=== PATIENT | female | born 1990 | race Caucasian/White ===

== ENCOUNTER → 2017-12-05 14:31 | Outpatient (CLI) | payer MEDICAID, SELFPAY ==
[2017-12-05 14:15] VITALS: BMI 43.9
--- NOTE | 2017-12-05 14:35 | RAD_ITS ---
STUDY: X-RAY - LEFT HAND REASON FOR EXAM: Female, 27 years old. Bilateral hand pain. No trauma TECHNIQUE: 3 view(s) of the hand. COMPARISON: None. FINDINGS: Normal radiocarpal articulation. Normal distal radioulnar joint. Normal visualized carpal bones. Normal carpal articulations Normal carpometacarpal articulation of the thumb. Normal second through fifth carpometacarpal joints. Normal metacarpi. Normal metacarpophalangeal joint of the thumb. Normal interphalangeal joint of the thumb. Normal proximal and distal phalanges of the thumb. Normal metacarpophalangeal joints of the second through fifth fingers. Normal proximal and distal interphalangeal joints of the second through fifth fingers. Normal phalanges of the second through fifth fingers. The soft tissue structures are unremarkable. RAD/Hand Min 3 Views IMPRESSION: Normal x-ray examination of the hand. Electronically Signed: Raymundo Samayoa MD, FACR at 15:37 EST , Service support ,
--- NOTE | 2017-12-05 14:36 | RAD_ITS ---
STUDY: X-RAY - RIGHT HAND REASON FOR EXAM: Female, 27 years old. Bilateral hand pain. No trauma TECHNIQUE: 3 view(s) of the hand. COMPARISON: None. FINDINGS: Normal radiocarpal articulation. Normal distal radioulnar joint. Normal visualized carpal bones. Normal carpal articulations Normal carpometacarpal articulation of the thumb. Normal second through fifth carpometacarpal joints. Normal metacarpi. Normal metacarpophalangeal joint of the thumb. Normal interphalangeal joint of the thumb. Normal proximal and distal phalanges of the thumb. Normal metacarpophalangeal joints of the second through fifth fingers. Normal proximal and distal interphalangeal joints of the second through fifth fingers. Normal phalanges of the second through fifth fingers. The soft tissue structures are unremarkable. RAD/Hand Min 3 Views IMPRESSION: Normal x-ray examination of the hand. Electronically Signed: Raymundo Samayoa MD, FACR at 15:37 EST , Service support ,
== END ==
PROVIDERS: Family Provider Nurse Practitioner Family; PCP Nurse Practitioner Family; Visit Provider Orthopaedic Surgery
DX: M79.641 Pain in right hand (principal); M79.642 Pain in left hand
CPT/HCPCS: 73130

== ENCOUNTER → 2018-02-27 06:28 | Outpatient (CLI) | payer MEDICAID, SELFPAY ==
--- NOTE | 2018-02-27 10:31 | NEURO ---
NCS and/or EMG Patient Report Ordering Doctor: Dolly Cardoso DATE OF SERVICE: 02/27/18 This is a bilateral upper extremity nerve conduction study and a right upper extremity EMG performed on this 27-year-old female with pain in both hands worse on the right. She describes pain in her thenar and hyperthenar muscles bilaterally. She denies symptoms in her fingers. Symptoms of been present for approximately 1 year progressively worse, no improvement with wrist splints. She is healthy otherwise. Bilateral upper extremity sensory and motor nerve conduction studies are performed. There is very mild prolongation of the median motor distal latencies symmetrically with preservation of amplitudes and conduction velocities. The median sensory responses are preserved. The ulnar motor and sensory and radial sensory responses bilaterally are normal and the median and ulnar F waves are normal. Right upper extremity needle electromyography is performed. Muscles evaluated included the first dorsal interosseous, abductor pollicis brevis, brachioradialis, biceps, triceps and deltoid muscles. All muscles demonstrated normal insertional activity with absence of pathologic spontaneous activity. Motor unit potential recruitment pattern and amplitude was normal in all muscles tested. Impression: There is very mild carpal tunnel syndrome at the wrists bilaterally however this does not appear to be clinically significant. Otherwise this is a normal electrophysiologic study.
== END ==
PROVIDERS: Family Provider Nurse Practitioner Family; PCP Nurse Practitioner Family; Visit Provider Orthopaedic Surgery
DX: G56.03 Carpal tunnel syndrome, bilateral upper limbs (principal)
CPT/HCPCS: 95886; 95913

== ENCOUNTER → 2018-03-13 16:04 | Outpatient (CLI) | payer MEDICAID, SELFPAY ==
--- NOTE | 2018-03-13 10:45 | TONS_PTH ---
PATIENT: ATIYA STUBBS LOC: [facility] U#:[id number] AGE/SX: 35/F ROOM: RE03/13/[address]: Dr. Iftikhar Kingsley MD : 1990 BED: DIS: SPEC #: [id number] RECD: 03/13/18 15:34 STATUS: CJ RAD #: [id number] STEFANI: 03/13/18 10:[address]: Iftikhar Kingsley DEPT: SURGICAL PATHOLOGY RECD BY: Alex Burns ENTERED: 03/14/18 08:59 SP TYPE: TONSILS OTHR DR: Liz Florence, [employer]PA[employer] [facility] Tissues: Tonsil, NOS Procedures: Surgery Specimen Level III HEADER OPERATION: Tonsillectomy PRE-OP DIAGNOSIS: Chronic tonsillitis TISSUE SUBMITTED: Tonsils (right tagged with pin) MICROSCOPIC DIAGNOSIS Bilateral tonsils: Reactive lymphoid hyperplasia, consistent with chronic tonsillitis. SJ:kristyn 03/15/18 MICROSCOPIC DESCRIPTION Slides are reviewed. GROSS DESCRIPTION Received is one container labeled with the patient's name and designated tonsils - pin on right are two tonsils that in aggregate weigh 5.9 gm. The right tonsil has a pin on it and measures 3 x 1.8 x 1.5 cm. The left tonsil measures 3 x 1.7 x 1 cm. Both tonsils are similar in appearance. The external surfaces are pink-andersen, smooth, glistening and somewhat lobulated. Focally they are hemorrhagic, granular and bear cautery artifact. Serial cross sections through the tonsils reveal normal tonsillar architecture. Sections are submitted in two cassettes as follows: 1 - right tonsil, 2 - left tonsil. / MARCELA:kristyn 03/14/18 TC:3 [facility]: [id number] x2
== END ==
PROVIDERS: Family Provider Nurse Practitioner Family; Visit Provider Otolaryngology
DX: J35.01 Chronic tonsillitis (principal)
CPT/HCPCS: 88304

== ENCOUNTER → 2019-01-31 15:44 | Outpatient (CLI) | payer MEDICAID, SELFPAY ==
[2017-12-05 14:15] VITALS: BMI 43.9
--- NOTE | 2019-01-31 15:47 | CT_ITS ---
STUDY: CT SOFT TISSUE NECK WITH CONTRAST REASON FOR EXAM: Female, 28 years old. RT SIDE NECK MASS. RADIATION DOSAGE (If Supplied By Facility): CTDIvol = ( 25.28 ) mGy, DLP = ( 751.18 ) mGycm TECHNIQUE: The patient was scanned in a multi-detector CT scanner. High resolution transaxial imaging was performed following intravenous administration of 100 IV Isovue 300. Sagittal and coronal images were reconstructed. Individualized dose optimization techniques were used for this CT. COMPARISON: None. FINDINGS: Normal bilateral parotid glands. Normal bilateral cisco certified network professional spaces. Normal bilateral parapharyngeal spaces. Normal bilateral carotid spaces. Normal bilateral sublingual and submandibular glands and spaces. Normal visualized nasopharynx. Normal retropharyngeal space. Normal perivertebral space. Normal visualized bilateral faucial tonsils. The visualized tongue, tongue base and oropharynx are normal. There is a right anterior neck marker. There are no demonstrated masses in this region. However there are are enlarged cervical lymph nodes. Most prominent at the right jugulodigastric measuring up to 1.8 cm and left jugulodigastric region measuring up to 2.0 cm. Normal epiglottis, bilateral vallecula and hypopharynx. The pre-epiglottic and paraglottic adipose spaces are normal. Normal visualized bilateral piriform sinuses, aryepiglottic folds, vocal cords, and arytenoid-cricoid articulations. Normal subglottic trachea. Normal bilateral lobes of the thyroid gland. Normal visualized pulmonary apices. Normal visualized paranasal sinuses. Normal visualized cervical spine. CT/Soft Tissue Neck WITH Contrast IMPRESSION: Mild lymphadenopathy. Differential considerations are infectious, inflammatory and neoplastic disease. Electronically Signed: Sourav Dillon MD at 10:30 EDT Tel , Service support ,
== END ==
PROVIDERS: Family Provider Nurse Practitioner Family; PCP Nurse Practitioner Family; Referring Provider Otolaryngology; Visit Provider Otolaryngology
DX: R22.1 Localized swelling, mass and lump, neck (principal); H92.09 Otalgia, unspecified ear
CPT/HCPCS: 70491; Q9967